=== PATIENT | female | born 1970 | race Caucasian/White ===

== ENCOUNTER → 2019-09-16 | Outpatient (CLI) | payer BC ==
--- NOTE | 2019-09-16 13:29 | PCVCIMAG ---
APPROVED REPORT Indications Dizziness and Vertigo Tinnitus Doppler Spectral Velocity Analysis PSV / EDVPSV / EDV ECA (R) 92 / 21 cm/sECA (L) 77 / 17 cm/s dICA (R) 55 / 25 cm/sdICA (L) 65 / 27 cm/s Chet (R) 68 / 31 cm/smICA (L) 73 / 32 cm/s pICA (R) 79 / 21 cm/spICA (L) 70 / 23 cm/s Bulb (R) 90 / 25 cm/sBulb (L) 51 / 18 cm/s dCCA (R) 109 / 26 cm/sdCCA (L) 109 / 31 cm/s mCCA (R) 108 / 25 cm/smCCA (L) 103 / 26 cm/s Vert (R) 48 / 18 cm/sVert (L) 94 / 31 cm/s ICA/CCA 0.72ICA/CCA 0.67 Basic Measurements Blood Pressure: Pulses: Right Left RightLeft Brachial(Sitting) 106/51paBz009/72mmHgTemporal Real Time B-Mode Imaging Vert. (R)AntegradeVert. (L)Antegrade Findings RIGHT CAROTID: The carotid bulb has minimal plaque. The proximal internal carotid artery shows no significant stenosis. The common carotid artery shows no significant stenosis. The external carotid artery shows no significant stenosis. LEFT CAROTID: The carotid bulb has minimal plaque. The proximal internal carotid artery shows no significant stenosis. The common carotid artery shows no significant stenosis. The external carotid artery shows no significant stenosis. Conclusion No significant stenosis of the right internal carotid artery with minimal plaque. No significant stenosis of the left internal carotid artery with minimal plaque.
--- NOTE | 2019-09-16 15:49 | PCVCIMAG ---
APPROVED REPORT Study performed: 09/16/2019 13:24:16 EXAM: Comprehensive 2D, Doppler, and color-flow Echocardiogram Patient Location: Echo lab Status: routine BSA: 1.58 HR: 60 bpmBP: 106/74 mmHg Rhythm: NSR Other Information Study Quality: Good Indications Dizziness and Vertigo Thyroid Disease 2D Dimensions IVSd: 7.24 (7-11mm)LVOT Diam: 21.92 (18-24mm) LVDd: 40.31 mm PWd: 6.44 (7-11mm)Ascending Ao: 28.95 (22-36mm) LVDs: 31.53 (25-40mm) Left Atrium: 25.07 (27-40mm) Aortic Root: 26.22 mm LV Single Plane 4CH: 51.84 % LV Single Plane 2CH: 66.39 % Biplane EF: 60.5 % Volumes Left Atrial Volume (Systole) Single Plane 4CH: 25.15 mLSingle Plane 2CH: 41.41 mL LA ESV Index: 22.00 mL/m2 Mitral Valve E/A Ratio: 1.4 MV Decel. Time: 226.20 ms MV E Max Patrick.: 0.79 m/s MV A Patrick.: 0.57 m/s TDI E/Lateral E': 5.27E/Medial E': 6.58 Medial E' Patrick.: 0.12 m/s Lateral E' Patrick.: 0.15 m/s Pulmonary Valve PV Peak Gr.: 3.03 mmHg Pulmonary Vein P Vein S: 0.66 m/sP Vein A: 0.30 m/s P Vein D: 0.61 m/sP Vein A Dur.: 90.0 msec P Vein S/D Ratio: 1.08 Tricuspid Valve TR Peak Patrick.: 2.32 m/s TR Peak Gr.: 21.53 mmHg Left Ventricle The left ventricle is normal size. There is normal LV segmental wall motion. There is normal left ventricular wall thickness. Left ventricular systolic function is normal. The left ventricular ejection fraction is within the normal range. LVEF is 55-60%. Right Ventricle The right ventricle is normal size. The right ventricular systolic function is normal. Atria The left atrium size is normal. The right atrium size is normal. Aortic Valve The aortic valve is normal in structure. No aortic regurgitation is present. There is no aortic valvular stenosis. Mitral Valve The mitral valve is normal in structure. Trace mitral regurgitation. No evidence of mitral valve stenosis. Tricuspid Valve The tricuspid valve is normal in structure. Trace tricuspid regurgitation. Pulmonary artery pressure is 29mmHg. Pulmonic Valve The pulmonary valve is normal in structure. There is no pulmonic valvular regurgitation. Great Vessels The aortic root is normal in size. IVC is normal in size and collapses >50% with inspiration. Pericardium There is no pericardial effusion. <Conclusion> The left ventricle is normal size. LVEF is 55-60%. The aortic valve is normal in structure. The mitral valve is normal in structure. Trace mitral regurgitation. The tricuspid valve is normal in structure. Trace tricuspid regurgitation. Pulmonary artery pressure is 29mmHg. The pulmonary valve is normal in structure. There is no pericardial effusion.
== END | disposition home or self-care (01) ==
LOC: PCVCIMAG 12:58
PROVIDERS: ATTEND Internal Medicine
DX: I65.23 Occlusion and stenosis of bilateral carotid arteries (principal); I95.1 Orthostatic hypotension; E07.9 Disorder of thyroid, unspecified; E06.3 Autoimmune thyroiditis; K21.9 Gastro-esophageal reflux disease without esophagitis; K44.9 Diaphragmatic hernia without obstruction or gangrene; M81.0 Age-related osteoporosis without current pathological fracture; F17.210 Nicotine dependence, cigarettes, uncomplicated; Z88.5 Allergy status to narcotic agent; Z88.8 Allergy status to other drugs, medicaments and biological substances; Z79.899 Other long term (current) drug therapy; Z90.710 Acquired absence of both cervix and uterus; Z83.3 Family history of diabetes mellitus; Z83.49 Family history of other endocrine, nutritional and metabolic diseases
CPT/HCPCS: 93306; 93880